=== PATIENT | male | born 1960 | race Caucasian/White ===

== ENCOUNTER 2019-11-14 07:56 | Observation (INO) ==
--- NOTE | 2019-11-08 12:53 | PAT Medication Instructions ---
Medication Instructions Date of Service November 08, 2019 Home Medications buspirone 20 mg PO QAM fluoxetine 20 mg PO QAM fluticasone propionate 1 spray INTRANASAL DAILY PRN montelukast 10 mg PO QAM pantoprazole 40 mg PO QAM simvastatin 40 mg PO QAM Lactobacillus acidophilus [Probiotic Acidophilus] 1,000 mmu cells PO QAM cholecalciferol (vitamin D3) [Vitamin D3] 50 mcg PO QAM ipratropium bromide 2 spray INTRANASAL BID meloxicam 15 mg PO QAM ASK your surgeon for instructions meloxicam 15 mg PO QAM DO NOT take the morning of surgery montelukast 10 mg PO QAM Lactobacillus acidophilus [Probiotic Acidophilus] 1,000 mmu cells PO QAM cholecalciferol (vitamin D3) [Vitamin D3] 50 mcg PO QAM Take morning of surgery With a small sip of water, OTHERWISE NOTHING TO EAT OR DRINK AFTER MIDNIGHT: buspirone 20 mg PO QAM fluoxetine 20 mg PO QAM fluticasone propionate 1 spray INTRANASAL DAILY PRN (if needed) pantoprazole 40 mg PO QAM simvastatin 40 mg PO QAM ipratropium bromide 2 spray INTRANASAL BID Take evening before surgery fluticasone propionate 1 spray INTRANASAL DAILY PRN (if needed) ipratropium bromide 2 spray INTRANASAL BID Other Notes If you have any questions please call us at [phone] or [phone] or [phone] or [phone]
--- NOTE | 2019-11-10 11:33 | Anesthesiology Consultation ---
Date of Service November 10, 2019 Assessment & Plan (1) Encounter for pre-operative examination: Per assessment on 11/09: Travel screen negative. No known COVID-19 positive cont acts or current COVID-19 related symptoms. Surgeon arranging preop COVID testing (was already done 11/09; VIOLA Munroe). Awaiting results. Chart Review Chart Review: Acceptable Risk for Surgery (pending surgeon-ordered PCP clearance) and Patient seen in Pre Admission Testing Teaching & Discussion Pre-Anesthesia Teaching/Discussion Notes: Instructed NPO after midnight before surgery,except medications with 15 cc of water. Medication instructions provided according to the PAT guidelines. History Surgery Operation Date: 11/14/19 11:10 Proposed Procedures p Right Anterior Total Hip Arthroplasty - Haris Carr DO Height/Weight Height: 5 ft 11 in Weight: 112.9 kg Allergies Allergy/AdvReac Type Severity Reaction Status Date / Time fexofenadine Allergy Unknown itchy Verified 11/08/19 11:15 omeprazole AdvReac Unknown SOB Verified 11/08/19 11:15 seasonal Allergy Unknown "allergy Uncoded 11/08/19 11:15 symptoms" Medications Home Medications Medication Instructions Recorded Confirmed Last Taken buspirone 20 mg PO QAM 09/24/19 11/08/19 09/24/19 fluoxetine 20 mg PO QAM 09/24/19 11/08/19 09/24/19 fluticasone propionate 1 spray INTRANASAL DAILY PRN 09/24/19 11/08/19 Unknown montelukast 10 mg PO QAM 09/24/19 11/08/19 09/24/19 pantoprazole 40 mg PO QAM 09/24/19 11/08/19 09/24/19 simvastatin 40 mg PO QAM 09/24/19 11/08/19 09/24/19 Lactobacillus acidophilus 1,000 mmu cells PO QAM 11/08/19 11/08/19 Unknown [Probiotic Acidophilus] cholecalciferol (vitamin D3) 50 mcg PO QAM 11/08/19 11/08/19 Unknown [Vitamin D3] ipratropium bromide 2 spray INTRANASAL BID 11/08/19 11/08/19 Unknown meloxicam 15 mg PO QAM 11/08/19 11/08/19 Unknown Past Medical History Medical History Anxiety Depression GERD (gastroesophageal reflux disease) controlled Hypercholesteremia Obesity Osteoarthritis Exercise / Class Metabolic Activity II 4-5 Yardwork/Stairs/Walk up hill Past Family History Family History Grandmother (Maternal) Family history of diabetes mellitus Past Surgical History Surgical History Fusion of spine CERVICAL C4-C5 History of arthroscopy L KNEE X 4 History of colonoscopy History of repair of rotator cuff R/L History of vasectomy Past Anesthesia History No Hx of Anesthesia Complications and No Family Hx of Anesthesia Complications History of PONV No Hx of PONV and No Hx of Motion Sickness Social History Smoking Status: Never smoker Do You Dip or Chew Tobacco: No Hx Alcohol Use: Yes Alcohol type: hard liquor alcohol intake frequency: a few times a week Hx Substance Use: No Review of Systems Reflux controlled. Patient denies chest pain, shortness of breath, dyspnea on exertion, fever, chills, cough, wheezing, palpitations. Physical Exam Vital Signs VITALS BP 137/88 P 72 TEMP 97.9 SP02 97%RA RESP 16 PHYSICAL Full neck and c-spine range of motion. Full TMJ range of motion. TMD 3 finger breaths Mallampati Score 3 Dentition: intact, + crowns Lungs: clear throughout to auscultation Cardiac: regular rate and rhythm, no murmurs noted Spine: normal Carotid arteries: negative bruit Extremities: no edema Testing Laboratory Results 11/10/19 11:46 11/10/19 11:46 PT 10.4 Seconds (9.0-12.0) 11/10/19 11:46 INR 1.0 (0.9-1.1) 11/10/19 11:46 APTT 26.7 Seconds (21.0-31.0) 11/10/19 11:46 Hemoglobin A1c 6.4 % (4.5-5.6) H 11/10/19 11:46 Urine Color Dark Yellow 11/10/19 Unknown Urine Appearance Clear (Clear) 11/10/19 Unknown Urine pH 5.0 (4.5-7.5) 11/10/19 Unknown Ur Specific [place] 1.029 (1.000-1.030) 11/10/19 Unknown Urine Protein Negative (Negative) 11/10/19 Unknown Urine Glucose (UA) Negative (Negative) 11/10/19 Unknown Urine Ketones Trace (Negative) H 11/10/19 Unknown Urine Nitrite Negative (Negative) 11/10/19 Unknown Ur Leukocyte Esterase Negative (Negative) 11/10/19 Unknown Blood Type O Positive 11/10/19 11:46 Antibody Screen NEGATIVE 11/10/19 11:46 Electrocardiogram Date: 11/10/19 NSR at 79bpm. unconfirmed report. Chest X-Ray Date: 11/10/19 Cardiomediastinal and hilar silhouettes are within normal limits. Unchanged mild pleural thickening at the apices. No pneumothorax, pleural effusion or overt pulmonary edema. Bones of the chest appear grossly intact. Lower cervical spine fusion hardware. IMPRESSION: No acute process.
--- NOTE | 2019-11-10 12:11 | XRay Report ---
XR chest Pre-admission PA/Lat HISTORY: 59 years-old Male pat preoperative exam. COMPARISON: Chest radiograph 08/12/2013 TECHNIQUE: PA and lateral views of the chest FINDINGS: Cardiomediastinal and hilar silhouettes are within normal limits. Unchanged mild pleural thickening a t the apices. No pneumothorax, pleural effusion or overt pulmonary edema. Bones of the chest appear g rossly intact. Lower cervical spine fusion hardware. IMPRESSION: No acute process. ACT 112: Negative or not required by law. The above report was generated using voice recognition software. It may contain grammatical, syntax o r spelling errors. Electronically signed by: Justin Cerna M.D. 11/10/2019 12:09 PM
[2019-11-10 12:32] LABS: Appearance Urine Clear (Clear); Bilirubin Urine Negative (Negative); Blood Urine Negative (Negative); Color Urine Dark Yellow; Glucose Urine UA Negative (Negative); Ketones Urine Trace (Negative); Leukocyte Esterase Urine Negative (Negative); Nitrite Urine Negative (Negative); Protein Urine Negative (Negative); Specific Gravity Urine 1.029 (1.000-1.030); Urobilinogen Urine Negative (Negative)
[2019-11-10 12:34] LABS: Basophils # (auto) 0.04 K/uL (0-0.2); Basophils % (auto) 0.5 %; Eosinophils # (auto) 0.27 K/uL (0-0.5); Eosinophils % (auto) 3.3 %; Hematocrit (blood only) 45.3 % (42-52); Hemoglobin 15.2 g/dL (14.0-18.0); Immature Granulocytes # (auto) 0.18 K/uL (0.00-0.02); Immature Granulocytes % (auto) 2.2 %; Lymphocytes # (auto) 2.06 K/uL (1.2-3.4); Mean Corpuscular Hemoglobin 29.6 pg (25-34); Mean Corpuscular Hgb Conc 33.6 g/dL (32-36); Mean Corpuscular Volume 88.3 fL (80-100); Mean Platelet Volume 9.8 fL (7.4-10.4); Monocytes # (auto) 0.79 K/uL (0.11-0.59); Monocytes % (auto) 9.6 %; Neutrophils # (auto) 4.91 K/uL (1.4-6.5); Neutrophils % (auto) 59.4 %; Platelet Count 202 K/uL (130-400); RDW Coefficient of Variation 12.7 % (11.5-14.5); RDW Standard Deviation 40.9 fL (36.4-46.3); Red Blood Count 5.13 M/uL (4.7-6.1); White Blood Count 8.25 K/uL (4.8-10.8)
[2019-11-10 12:42] LABS: Partial Thromboplastin Time 26.7 Seconds (21.0-31.0); Prothrombin Time 10.4 Seconds (9.0-12.0)
[2019-11-10 12:47] LABS: Albumin Level 3.9 gm/dl (3.4-5.0); BUN Creatinine Ratio 19.7 (10-20); Calcium 9.4 mg/dl (8.5-10.1); Creatinine Clr Calc Pharmacy 90.7 ml/min; Est GFR (African American) 82.9; Est GFR (Non-African American) 71.5
[2019-11-10 12:52] LABS: Estimated Average Glucose 137 mg/dl; Hemoglobin A1C 6.4 % (4.5-5.6)
--- NOTE | 2019-11-10 19:05 | Electrocardiogram Report ---
Test Reason : Blood Pressure : / mmHG Vent. Rate : 079 BPM Atrial Rate : 079 BPM P-R Int : 162 ms QRS Dur : 084 ms QT Int : 374 ms P-R-T Axes : 056 056 055 degrees QTc Int : 428 ms Normal sinus rhythm Normal ECG When compared with ECG of 11-AUG-2013 19:08, No significant change was found Confirmed by Doug Salazar ([id number]) on 11/10/2019 7:04:26 PM Referred By: Haris Carr Confirmed By:Duong Salazar
--- NOTE | 2019-11-12 11:50 | History & Physical Report ---
Date of Service November 14, 2019 Assessment & Plan (1) Degenerative joint disease of right hip: I have indicated the patient for right anterior total hip replacement. The risks, benefits and complications of surgery were explained to the patient which include but not limited to infection, acute blood loss, DVT/PE, injury to nerves, vessels, bone, soft tissue, arthrofibrosis, chronic pain, failure of the prosthesis, hip dislocation, leg length discrepancy, need for additional surgery, cardiac and pulmonary events and . The patient wished to proceed with surgery and informed consent was obtained at this time. We will plan for ASA BID post-operatively for DVT prophylaxis. Upon discharge the patient will be discharged home with home health services. Appropriate clearances by PCP were obtained. History of Present Illness Chief Complaint: Right hip pain/DJD Primary Care Provider: DONALD Cornejo The patient is a 59 year old male who presents with complaints of severe right hip pain and DJD. The patient has failed outpatient conservative treatments to this point which included NSAIDs, home exercise, walking program. Patient declined corticosteroid injection. The patient's pain and limited function have progressed to the point where they severely hinder their activities of daily living and they no longer tolerate exercise programs. They are requesting to proceed with total hip replacement surgery. Allergies Allergy/AdvReac Type Severity Reaction Status Date / Time fexofenadine Allergy Unknown itchy Verified 11/08/19 11:15 omeprazole AdvReac Unknown SOB Verified 11/08/19 11:15 seasonal Allergy Unknown "allergy Uncoded 11/08/19 11:15 symptoms" Home Medications Home Medications Medication Instructions Recorded Confirmed Type buspirone 20 mg PO QAM 09/24/19 11/14/19 History fluoxetine 20 mg PO QAM 09/24/19 11/14/19 History fluticasone propionate 1 spray INTRANASAL DAILY PRN 09/24/19 11/08/19 History montelukast 10 mg PO QAM 09/24/19 11/14/19 History pantoprazole 40 mg PO QAM 09/24/19 11/14/19 History simvastatin 40 mg PO QAM 09/24/19 11/14/19 History Lactobacillus acidophilus 1,000 mmu cells PO QAM 11/08/19 11/14/19 History [Probiotic Acidophilus] cholecalciferol (vitamin D3) 50 mcg PO QAM 11/08/19 11/14/19 History [Vitamin D3] ipratropium bromide 2 spray INTRANASAL BID 11/08/19 11/14/19 History meloxicam 15 mg PO QAM 11/08/19 11/14/19 History acetaminophen [Tylenol Extra 500 mg PO Q6H PRN 11/14/19 11/14/19 History Strength] Past Med/Surg History Medical History Anxiety Depression GERD (gastroesophageal reflux disease) controlled Hypercholesteremia Obesity Osteoarthritis Surgical History Fusion of spine CERVICAL C4-C5 History of arthroscopy L KNEE X 4 History of colonoscopy History of repair of rotator cuff R/L History of vasectomy Family History Grandmother (Maternal) Family history of diabetes mellitus Social History Smoking Status: Never smoker Second Hand Exposure: Yes (FAMILY SMOKED); Do You Dip or Chew Tobacco: No; Hx Alcohol Use: Yes Alcohol type: hard liquor Hx Substance Use: No Preferred Language: Estonian Communication Ability: Effective Chemical Production Technician Required: No Beliefs That Will Affect Care: None Current Living Situation: Spouse Other Information That Helps Us Care for You: No Feels Safe at Home: Yes Safety Concerns: Feels Safe At This Time Review of Systems Review of Systems: All systems reviewed & are unremarkable except as noted in HPI & below Constitutional: as per Subjective / HPI Physical Exam Physical Exam: RLE NVSI +EHL/FHL/TA/GS SILT grossly, +2 DP pulse, compartments soft NT, limited painful ROM of the hip, antalgic gait. Constitutional: WD/WN, vitals as above Eyes: PERRL, conjunctivae normal, anicteric sclerae ENMT: external ear and nose normal, oropharynx normal Neck: trachea midline, no thyromegaly Respiratory: normal respiratory effort, lungs clear to auscultation Cardiovascular: RRR, no murmur, no edema Gastrointestinal (Abdomen): normal bowel sounds, soft, nontender, no hepatosplenomegaly Musculoskeletal: no cyanosis or clubbing, extremities motor strength 5/5 Skin: no rashes, warm and dry Neurologic: patellar DTR's 2+ bilat, sensation intact Psychiatric: A+Ox3, euthymic affect Lymphatic: no cervical or axillary lymphadenopathy Results & Data Results & Data ([facility]) Diagnostic Findings Multiple views of the hip demonstrates severe DJD with complete loss of the joint space. +osteophytes, +sclerosis, +subchondral cysts. Pre Admission Testing Addendum Laboratory Results 11/10/19 11:46 11/10/19 11:46 PT 10.4 Seconds (9.0-12.0) 11/10/19 11:46 INR 1.0 (0.9-1.1) 11/10/19 11:46 APTT 26.7 Seconds (21.0-31.0) 11/10/19 11:46 Hemoglobin A1c 6.4 % (4.5-5.6) H 11/10/19 11:46 Urine Color Dark Yellow 11/10/19 Unknown Urine Appearance Clear (Clear) 11/10/19 Unknown Urine pH 5.0 (4.5-7.5) 11/10/19 Unknown Ur Specific [place] 1.029 (1.000-1.030) 11/10/19 Unknown Urine Protein Negative (Negative) 11/10/19 Unknown Urine Glucose (UA) Negative (Negative) 11/10/19 Unknown Urine Ketones Trace (Negative) H 11/10/19 Unknown Urine Nitrite Negative (Negative) 11/10/19 Unknown Ur Leukocyte Esterase Negative (Negative) 11/10/19 Unknown Blood Type O Positive 11/10/19 11:46 Antibody Screen NEGATIVE 11/10/19 11:46
[~2019-11-14 07:56] MED LIST: ACETAMINOPHEN 500 MG TAB PO SCH; BUPIVACAINE 0.5 % 5 MG/1 ML PF 10ML VIAL ONE; CeleBREX 200 MG CAP PO SCH; FAMOTIDINE 20 MG TAB PO SCH; GABAPENTIN 600 MG DOSE PO SCH; LR 500ML BOLUS, THEN 15ML/HR IV SCH; METOCLOPRAMIDE HCL 10 MG TABLET PO SCH; MIDAZOLAM HCL 1 MG/ML 2ML VIAL ONE; ROPIVACAINE 0.5% HCL/PF 150 MG, BUPIVACAINE 0.5% MPF 30 ML, EPINEPHrine 30MG/30ML (OR U... INSTIL SCH; TRANEXAMIC ACID 1,000 MG **IV Intra-op IV SCH; TRANEXAMIC ACID 1,000 MG **IV Pre-op IV SCH; ceFAZolin 2000MG 2,000 MG/15 ML SYR IV SCH; dexAMETHasone 4 MG TAB PO SCH; fentaNYL citrate 100 MCG/2 ML VIAL ONE
[2019-11-14] MEDS ORDERED: ONDANSETRON INJ 2 MG/ML 2 ML VIAL IV PRN ×2 (11:30→15:31)
[2019-11-14] MEDS ORDERED: fentaNYL citrate 100 MCG/2 ML VIAL IV PRN (11:30)
[2019-11-14] MEDS ORDERED: ePHEDrine sulfate 50 MG/ML AMP IV PRN (11:30)
[2019-11-14] MEDS ORDERED: ATROPINE SULFATE 0.1 MG/ML 10ML SYR IV PRN (11:30)
--- NOTE | 2019-11-14 11:33 | History & Physical Bridge Note ---
Date of Service November 14, 2019 History & Physical Bridge Note I have examined the patient, reviewed the History & Physical and in the interval since the performance of the History & Physical I have noted the following changes of clinical significance: no changes noted
[2019-11-14] MEDS ORDERED: BACITRACIN INJ 50,000 UNIT VIAL ONE (11:37)
[2019-11-14] MEDS ORDERED: ORTHO JOINT ANESTHETIC ONE (11:37)
[2019-11-14] MEDS ORDERED: PROPOFOL IV EMULSION 10 MG/ML 20 ML VIAL IV ONE ×4 (12:15→12:50)
[2019-11-14] MEDS ORDERED: ePHEDrine sulfate 50 MG/ML SYR ONE (12:28)
[2019-11-14] MEDS ORDERED: PHENYLEPHRINE HCL 10 MG/ML VIAL ONE (12:59)
--- NOTE | 2019-11-14 13:59 | Post Operative Brief Note ---
Immediate Post Op Note v1 Date of Surgery November 14, 2019 Pre & Post Diagnosis Operation Date: 11/14/19 11:10 Pre-Op Diagnosis: Right Hip Osteoarthritis Post-Op Diagnosis: Right Hip Osteoarthritis I identified the patient and participated in the time-out.: Yes Procedure Operation Date: 11/14/19 11:10 Actual Procedures p Right Anterior Total Hip Arthroplasty(Right) - Haris Carr DO Surgeon Haris Carr DO Finishing Manager Jacinto Stewart Estimated Blood Loss 155 Findings Consistent with Post-Op Diagnosis Fluids 1500 cc LR Specimens Femoral head Anesthesia Type Spinal MAC Complications none Disposition Disposition: Recovery Room Overlapping Procedure I was present for: the critical portions of procedure. I was immediately available: during the entire case. Back up surgeon: was not required during procedure.
--- NOTE | 2019-11-14 14:00 | Fluoroscopy Report ---
FL hip RT 1V HISTORY: 59 years-old Male RT ANTERIOR TOTAL HIP right hip total joint arthroplasty COMPARISON: Pelvis and right hip radiographs 09/24/2019 TECHNIQUE: 2 spot fluoroscopic images of the right hip were obtained utilizing 37.6 seconds fluorosco py time FINDINGS: Right hip total joint arthroplasty demonstrates satisfactory alignment. No acute fracture or unexpect ed retained foreign body. Expected postsurgical soft tissue swelling and deep tissue air. IMPRESSION: Fluoroscopic assistance as above. Please see operative report for further details. ACT 112: Negative or not required by law. The above report was generated using voice recognition software. It may contain grammatical, syntax o r spelling errors. Electronically signed by: Justin Cerna M.D. 11/14/2019 1:59 PM
--- NOTE | 2019-11-14 14:01 | Operative Report ---
Post Operative Report Pre & Post Diagnosis Operation Date: 11/14/19 11:10 Pre-Op Diagnosis: Right Hip Osteoarthritis Post-Op Diagnosis: Right Hip Osteoarthritis I identified the patient and participated in the time-out.: Yes Procedure Operation Date: 11/14/19 11:10 Actual Procedures p Right Anterior Total Hip Arthroplasty(Right) - Haris Carr DO Surgeon Haris Carr DO Hall Tender Jacinto Stewart Estimated Blood Loss 155 Findings Consistent with Post-Op Diagnosis Fluids 1500 cc LR Specimens Femoral head Anesthesia Type Spinal MAC Complications none Disposition Disposition: Recovery Room Indications The patient is a 59-year-old male who presents with severe progressive right hip DJD who has failed outpatient conservative treatments. I indicated the patient for a total hip replacement and the risks and benefits were explained in detail which included but not limited to infection, bleeding, blood clot, damage to surrounding bone, nerves, vessels, soft tissue, hip dislocation, failure of the prosthesis, leg length discrepancy, need for additional surgery and . The patient agreed to proceed with replacement of the hip and informed consent was obtained. Appropriate clearances were obtained. Description of Procedure COMPONENTS USED: [employer] hip system: Acetabulum size 54, femur size 9 high offset, femoral head 36+4, liner 5436, acetabular screw 25 mm x 1. DESCRIPTION OF PROCEDURE: Following satisfactory spinal anesthesia, the patient was placed supine on the OR table. The left leg was placed in the well leg aguilera and the right leg in the traction device. The right leg was prepared with ChloraPrep and draped sterilely. A surgical timeout was performed, patient identified and site perlita verified. Appropriate antibiotics were given. A standard anterior approach in the interval between the sartorius and tensor muscles was performed. Dissection was carried down through subcutaneous tissues. Electrocautery was utilized for hemostasis. Circumflex femoral vessels were identified, tied and ligated. The anterior capsular fat pad was removed and the capsulotomy was performed revealing the arthritic femoral neck and head. A femoral neck cut was made with reciprocating saw and the bone fragments removed. The acetabular self-retraining retractor was placed. Acetabular reaming was completed under fluoroscopic guidance, a 54 shell was impacted into an anatomic position and secured with a dome screw. Local anesthetic was placed and following irrigation, the polyethylene liner was placed. The femur was placed into position of external rotation, extension and adduction. Femoral canal was prepared up to the size 9 high offset. Trial reduction with a 36+4 neck length head showed good soft tissue tension, leg lengths restored, and good fit and fill of the proximal canal using fluoroscopic landmarks. The hip was dislocated. The trial component was removed. The final implant was placed. The hip was irrigated with sterile saline solution and reduced. A Betadine soak was performed. After 3 minutes, the hip was once more irrigated with copious sterile saline solution with bacitracin. Chloe-incisional soft tissue was injected utilizing [place] [employer]omix which includes a combination of Ropivicaine 0.5% 150mg, Bupivicaine 0.5%/Epinephrine 1:200,000 30ml, Toradol 30mg, Dexamethasone 4mg, Ketamine 10mg, Clonidine 100mcg and NSS 30ml solution. The capsule was then closed with 1-0 Vicryl interrupted figure of eight sutures. The fascia was closed with a running suture of #1 Vicryl, the subcutaneous tissues with 2-0 Vicryl and the skin was closed with rylee. A sterile dry dressing was applied which included Venita incisional VAC. The patient tolerated the procedure well and was transported to PACU in stable condition. Due to the complex nature of the procedure, the entire surgery was performed with the operational assistance of Jacinto Stewart PA-C. The dietitian assistant, under direct supervision, was involved in the actual performance of all aspects of the surgical procedure including patient positioning, hemostasis, tissue re traction, instrument management and wound closure. I attest to the content of the Intraoperative Record and any orders documented therein. Any exceptions are noted below.
--- NOTE | 2019-11-14 14:37 | XRay Report ---
AP PELVIS, CROSSTABLE LATERAL RIGHT HIP History: Right total hip arthroplasty. Degenerative arthritis. Postop. FINDINGS: The patient is status post a right total hip arthroplasty. The hardware is intact. No fract ure or dislocation. Skin rylee are in place. IMPRESSION: Right total hip arthroplasty. No evidence for hardware complication ACT 112: Negative or not required by law. Electronically signed by: Regan Urrutia M.D. 11/14/2019 2:36 PM
--- NOTE | 2019-11-14 14:44 | Anesthesiology Progress Note ---
Date of Service November 14, 2019 Anesthesia Post Procedure Vital Signs Vital Signs: Temp Pulse Pulse Resp BP BP Pulse Ox 11/14/19 14:30 83 13 110/60 96 11/14/19 14:20 81 11 L 92/57 L 100 11/14/19 14:13 97.7 F 89 15 96/63 L 97 11/14/19 09:47 69 20 148/78 H 96 11/14/19 09:30 97.9 F 78 18 148/94 H 97 Pain Intensity Right Hip: Pain Intensity: 0 Transfer of Care Handoff Completed per policy Notes Mental Status: alert / awake / arousable and participated in evaluation Patient Amnestic to Procedure: Yes Nausea / Vomiting: adequately controlled Pain: adequately controlled Airway Patency, RR, SpO2: stable & adequate BP & HR: stable & adequate Hydration State: stable & adequate Neuraxial Anesthesia: was administered and sensory block is resolving Anesthetic Complications: no major complications apparent and Pt Satisfied with anesthetic care
[2019-11-14] MEDS ORDERED: diphenhydrAMINE Capsule 25 MG CAP PO PRN (15:31)
[2019-11-14] MEDS ORDERED: MAGNESIUM HYDROXIDE SUSP 30 ML UDC PO PRN (15:31)
[2019-11-14] MEDS ORDERED: METOCLOPRAMIDE HCL INJ 5 MG/ML 2 ML VIAL IV PRN (15:31)
[2019-11-14] MEDS ORDERED: HYDROmorphone INJ 0.5 MG/0.5 ML SYR IV PRN (15:31)
[2019-11-14] MEDS ORDERED: NALOXONE HCL 0.4 MG/1 ML VIAL/CARP IV PRN (15:31)
[2019-11-14] MEDS ORDERED: bisacodyL 10 MG SUPP PR PRN (15:31)
[2019-11-14] MEDS: SODIUM CHLORIDE 0.9% 1000ML 1,000 ML IV SCH (15:57)
--- NOTE | 2019-11-14 15:58 | Orthopedic Progress Note ---
Date of Service November 14, 2019 Assessment & Plan (1) Degenerative joint disease of right hip: s/p R anterior ATIF -ancef x 24 -DVT ppx: SCDs, TEDs, ASA BID -WBAT RLE -PT/OT -PO XR demonstrates a well aligned well fixed prosthesis without fracture/dislocation -am labs -DC planning Admission and Anticipated Discharge Date Admission Date: November 14, 2019 Subjective Post Operative Progress Note Patient seen in PACU, comfortable, denies complaints, pain well controlled, no acute issues. Spinal anesthesia starting to wear off. Review of Systems Review of Systems: All systems reviewed & are unremarkable except as noted in HPI & below Constitutional: as per Subjective / HPI Physical Exam Physical Exam: RLE PE limited secondary to spinal anesthesia, +2 DP pulse, compartment soft NT, dressing CDI. Constitutional: WD/WN, vitals as above Results & Data ([facility]) Vital Signs (Past 12 Hours) Vital Signs Temp Pulse Pulse Resp BP BP Pulse Ox 11/14/19 15:35 36.5 C 88 16 113/71 95 11/14/19 15:25 80 13 113/62 97 11/14/19 15:15 84 15 94/69 L 92 11/14/19 15:00 85 12 116/66 94 11/14/19 14:45 36.3 C L 87 15 103/64 97 11/14/19 14:40 86 14 105/61 94 11/14/19 14:30 36.3 C L 83 13 110/60 96 11/14/19 14:20 81 11 L 92/57 L 100 11/14/19 14:13 36.5 C 89 15 96/63 L 97 11/14/19 09:47 69 20 148/78 H 96 11/14/19 09:30 36.6 C 78 18 148/94 H 97
[2019-11-14] MEDS: KETOROLAC TROMETHAMINE 15 MG/ML VIAL IV SCH ×2 (16:40→21:00)
[2019-11-14] MEDS: ceFAZolin 3,000 MG in DEXTROSE 5% 50 ML IV SCH (20:58)
[2019-11-14] MEDS: DOCUSATE SODIUM 100 MG CAP PO SCH (20:59)
[2019-11-14] MEDS ORDERED: SENNA 8.6 MG TAB PO SCH (21:00)
[2019-11-14] MEDS: ACETAMINOPHEN 500 MG TAB PO SCH (21:00)
[2019-11-14] MEDS: oxyCODONE HCL IR 5 MG TAB (IMMEDIATE RELEASE) PO PRN (21:11)
[2019-11-15] MEDS: oxyCODONE HCL IR 5 MG TAB (IMMEDIATE RELEASE) PO PRN ×2 (02:35→07:39)
[2019-11-15] MEDS: SODIUM CHLORIDE 0.9% 1000ML 1,000 ML IV SCH (02:39)
[2019-11-15] MEDS: ceFAZolin 3,000 MG in DEXTROSE 5% 50 ML IV SCH (05:07)
[2019-11-15] MEDS: KETOROLAC TROMETHAMINE 15 MG/ML VIAL IV SCH ×2 (05:08→10:22)
[2019-11-15] MEDS: ACETAMINOPHEN 500 MG TAB PO SCH ×2 (05:08→13:03)
[2019-11-15 06:15] LABS: Basophils # (auto) 0.01 K/uL (0-0.2); Basophils % (auto) 0.1 %; Hematocrit (blood only) 38.7 % (42-52); Hemoglobin 12.8 g/dL (14.0-18.0); Immature Granulocytes % (auto) 0.6 %; Lymphocytes # (auto) 1.27 K/uL (1.2-3.4); Lymphocytes % (auto) 7.9 %; Mean Corpuscular Hgb Conc 33.1 g/dL (32-36); Mean Corpuscular Volume 87.8 fL (80-100); Mean Platelet Volume 9.6 fL (7.4-10.4); Monocytes # (auto) 1.12 K/uL (0.11-0.59); Neutrophils # (auto) 13.61 K/uL (1.4-6.5); Neutrophils % (auto) 84.4 %; Platelet Count 222 K/uL (130-400); RDW Coefficient of Variation 12.6 % (11.5-14.5); RDW Standard Deviation 40.8 fL (36.4-46.3); Red Blood Count 4.41 M/uL (4.7-6.1); White Blood Count 16.11 K/uL (4.8-10.8)
[2019-11-15 06:51] LABS: Calcium 8.4 mg/dl (8.5-10.1); Creatinine Clr Calc Pharmacy 102.3 ml/min; Est GFR (African American) 96.2; Potassium 3.9 mmol/L (3.5-5.1)
[2019-11-15] MEDS: DOCUSATE SODIUM 100 MG CAP PO SCH (07:37)
[2019-11-15] MEDS ORDERED: MONTELUKAST SODIUM 10 MG TABLET PO SCH (09:00)
[2019-11-15] MEDS ORDERED: PANTOprazole 40 MG TAB PO SCH (09:00)
[2019-11-15] MEDS ORDERED: busPIRone 5 MG TAB PO SCH (09:00)
[2019-11-15] MEDS ORDERED: ASPIRIN 325 MG ECTAB PO SCH (09:00)
[2019-11-15] MEDS ORDERED: MULTIVITAMIN TAB PO SCH (09:00)
[2019-11-15] MEDS ORDERED: SIMVASTATIN 40 MG TAB PO SCH (09:00)
[2019-11-15] MEDS ORDERED: FLUoxetine HCL 20 MG CAP PO SCH (09:00)
--- NOTE | 2019-11-15 11:15 | Orthopedic Progress Note ---
Date of Service November 15, 2019 Assessment & Plan (1) Degenerative joint disease of right hip: s/p R anterior ATIF POD#1 -ancef x 24 -DVT ppx: SCDs, TEDs, ASA BID -WBAT RLE -PT/OT -PO XR demonstrates a well aligned well fixed prosthesis without fracture/dislocation -am labs - as above, hgb 12.8 -DC planning - home with Admission and Anticipated Discharge Date Admission Date: November 14, 2019 Subjective Post Operative Progress Note Patient seen sitting up in bed, comfortable, denies complaints, pain well controlled, no acute issues. Denies F/C/N/V/SOB/CP. Review of Systems Review of Systems: All systems reviewed & are unremarkable except as noted in HPI & below Constitutional: as per Subjective / HPI Physical Exam Physical Exam: RLE NVSI +EHL/FHL/TA/GS SILT grossly, +2 DP pulse, compartments soft NT, dressing cdi. Constitutional: WD/WN, vitals as above Results & Data ([facility]) Vital Signs (Past 12 Hours) Vital Signs Temp Pulse Resp BP Pulse Ox 11/15/19 07:17 36.3 C L 83 16 137/76 94 11/15/19 02:37 36.3 C L 90 16 153/86 H 95 11/14/19 23:40 36.5 C 92 H 16 166/92 H 94 Laboratory Results 11/15/19 11/15/19 Range/Units 05:20 05:20 WBC 16.11 H (4.8-10.8) K/uL RBC 4.41 L (4.7-6.1) M/uL Hgb 12.8 L (14.0-18.0) g/dL Hct 38.7 L (42-52) % MCV 87.8 (80-100) fL MCH 29.0 (25-34) pg MCHC 33.1 (32-36) g/dL RDW Std Deviation 40.8 (36.4-46.3) fL RDW Coeff of Aly 12.6 (11.5-14.5) % Plt Count 222 (130-400) K/uL MPV 9.6 (7.4-10.4) fL Immature Gran % (Auto) 0.6 % Neut % (Auto) 84.4 % Lymph % (Auto) 7.9 % [place] % (Auto) 7.0 % Eos % (Auto) 0.0 % Baso % (Auto) 0.1 % Neut # (Auto) 13.61 H (1.4-6.5) K/uL Lymph # (Auto) 1.27 (1.2-3.4) K/uL [place] # (Auto) 1.12 H (0.11-0.59) K/uL Eos # (Auto) 0.00 (0-0.5) K/uL Baso # (Auto) 0.01 (0-0.2) K/uL Immature Gran # (Auto) 0.10 H (0.00-0.02) K/uL Sodium 139 (136-145) mmol/L Potassium 3.9 (3.5-5.1) mmol/L Chloride 107 (98-107) mmol/L Carbon Dioxide 24 (21-32) mmol/L Anion Gap 8.0 (3-11) BUN 18 (7-18) mg/dl Creatinine 0.99 (0.6-1.4) mg/dl Est Cr Clr Drug Dosing 102.3 ml/min Est GFR ( Amer) 96.2 Est GFR (Non-Af Amer) 83.0 BUN/Creatinine Ratio 18.0 (10-20) Glucose 142 H (70-99) mg/dl Calcium 8.4 L (8.5-10.1) mg/dl
[2019-11-15] MEDS ORDERED: CeleBREX 200 MG CAP PO SCH (21:00)
--- NOTE | 2019-11-16 09:30 | Discharge Summary ---
Date of Service November 15, 2019 Admission HPI Per Admitting Provider The patient is a 59 year old male who presents with complaints of severe right hip pain and DJD. The patient has failed outpatient conservative treatments to this point which included NSAIDs, home exercise, walking program. Patient declined corticosteroid injection. The patient's pain and limited function have progressed to the point where they severely hinder their activities of daily living and they no longer tolerate exercise programs. They are requesting to proceed with total hip replacement surgery. Principal Diagnosis Right anterior total hip replacement -Right hip DJD Discharge Exam RLE NVSI +EHL/FHL/TA/GS SILT grossly, +2 DP pulse, compartments soft NT, dressing cdi. Constitutional WD/WN, vitals as above Discharge Data Allergies Allergy/AdvReac Type Severity Reaction Status Date / Time fexofenadine Allergy Unknown itchy Verified 11/08/19 11:15 omeprazole AdvReac Unknown SOB Verified 11/08/19 11:15 seasonal Allergy Unknown "allergy Uncoded 11/08/19 11:15 symptoms" Consultations 11/15/19 08:00 Consult Case Management - Discharge Planning Routine Procedures Performed Operation Date: 11/14/19 11:10 Actual Procedures p Right Anterior Total Hip Arthroplasty(Right) - Haris Carr DO Ordered Studies 11/14/19 11:10 FL fluoroscopy <1hr Routine FL hip RT 1V Routine Hospital Course (1) Degenerative joint disease of right hip: The patient is a 59 -year-old male who presents with long standing history of severe right hip DJD and failed outpatient conservative treatments. The patient's symptoms have progressed to the point where it has been difficult to perform even normal activities of daily living. I indicated the patient for a right anterior total hip arthroplasty, the risks, benefits and complications of the procedure include but not limited to infection, bleeding, damage to bone, nerves, vessels, surrounding soft tissue, may develop blood clots, loss of function, leg length discrepancy, dislocation, failure of the components, loosening of the components, the need for additional surgery and . The patient wished to proceed with surgery at this time and informed consent was obtained. Hospital Course: On 11/14/19 the patient was taken to the operating room, adequate anesthesia administered and underwent a right anterior total hip arthroplasty. The patient tolerated the procedure well and was taken to the PACU in stable condition. Post-operatively the patient was started on a DVT ppx medication and given appropriate IV antibiotics. Consults were placed to physical therapy, occupational therapy and case management. On POD#1, the patient did well overnight and their pain was well controlled. Labs were drawn and the Hgb was 12.8. The patient progressed well with PT. Dressings were changed at this time and the incision was clean, dry and intact. The patients hospital stay was relatively uneventful and they were deemed stable by the orthopedic team and consultants to be discharged home with HH on 11/15/19. Discharge Instructions: Upon discharge the patient may weight bear as tolerates through their operative extremity. They were instructed to keep the incision clean and dry at all times. The patient may shower but should not submerge the incision, avoid bathing, pools and hot tubes. The patient was given a script for pain medication and should take as instructed. The patient was given a script for DVT ppx 325mg ASA BID and should take as directed. The patient was instructed to not drive or travel for long distances until cleared to do so. If the patient develops any symptoms of fevers, chills, nausea, vomiting, increased redness, swelling, pain or drainage from the surgical site, they should notify the office and/or proceed to the nearest emergency room. The patient should follow up in 10-14 days after surgery for their routine post-operative follow-up appointment and should call the office to confirm the date and time. s/p R anterior ATIF POD#1 -ancef x 24 -DVT ppx: SCDs, TEDs, ASA BID -WBAT RLE -PT/OT -PO XR demonstrates a well aligned well fixed prosthesis without fracture/dislo cation -am labs - as above, hgb 12.8 -DC planning - home with Total Time Total Time Spent Total Time Spent (In Minutes): 30 Discharge Plan Discharge Items Patient Disposition: Home - Home Health Services Reason For Visit: Right Hip Osteoarthritis Discharge Diagnosis: Right anterior total hip replacement -right hip djd Condition on Discharge: Good Activity: Per Instructions section Lifting: Wait until after follow-up appointment Bathing: Keep incision dry Bathing Comment: No bathing, pools or hot tubs. Sexual Activity: Wait until after follow-up appointment Exercise/Sports: Wait until after follow-up appointment Driving/Machine Use: No driving Weightbearing: Full weightbearing Non-emergency contact: Primary Care Provider and Surgeon Call non-emergency contact if: you have any medication questions, your symptoms worsen, your pain is not controlled, your pain is worsening, your pain is unusual for you, your pain is concerning for you, you have a fever, your temperature is above 101, your wound has increased redness, your wound has increased drainage and your wound pain has increased Follow-up/Referrals: Pamela Santana CRNP [Primary Care Provider] - Diet: Regular Addtl Attending Provider Instructions: ACTIVITY RECOMMENDATIONS: SELF CARE INSTRUCTIONS AFTER TOTAL HIP REPLACEMENT : Direct Anterior Approach Until the incision and soft tissues around your hip have healed, there is a possibility that the hip prosthesis could dislocate. A. Hip flexion ( Up & Down out of chair or steps ) may be difficult. This is normal. B. Numbness in front of the thigh is also normal for a few weeks. C. Use hand rails when walking on stairs. D. Wear low heeled shoes with non-slip soles. E. Be sure that your floors are free of things that could trip you - throw rugs, electrical cords, small objects. Avoid wet and waxed floors, especially with crutches and canes. F. Try to walk several times a day with rest periods between. G. Continue with all the exercises taught to you in the hospital. Again, make walking a part of your daily routine. SPECIAL CARE INSTRUCTIONS: VERY IMPORTANT TO READ AND REVIEW A. You may still be at risk for phlebitis and blood clots. 1. Wear surgical stockings (PIERCE hose) for 2 weeks after surgery to improve circulation and reduce swelling. 2. Take Aspirin 325mg twice daily for 4 weeks or as directed by your doctor. This is your blood thinner. 3. High risk patients may be prescribed a stronger blood thinner if necessary. 4. If you are on Coumadin normally, your family doctor/procedures nurse should monitor your blood work. Expect a phone call the day of or the day after bloodwork is drawn to adjust your dosage. B. You must take antibiotics before having dental work, bladder, bowel and other surgery. Your doctor will provide you with a permanent card to carry describing precautions. C. Call [facility] if you have a fever, redness or swelling around the incision, cloudy drainage from incision, or sudden increase in pain in your hip, not relieved by your regular pain medication. D. Please call the office at if you have any concerns or questions about your operation or recovery. * YOU MAY SHOWER, NO TUB BATHS UNTIL CLEARED BY YOUR DOCTOR. - Keep an extra close eye on the top portion of your incision. Be sure to keep clean & dry. * WEAR PIERCE HOSE 20 HOURS PER DAY FOR 2 WEEKS. * YOU MAY PROGRESS FROM A WALKER, TO A CANE, TO INDEPENDENT AT YOUR OWN PACE. * MOST PATIENTS WILL HAVE HOME NURSING FOR THERAPY. IF YOU DECIDE TO DO OUTPATIENT PHYSICAL THERAPY, PLEASE SCHEDULE THIS 3 TIMES PER WEEK. *PREVENA incisional vac is a special dressing covering your incision. This dressing provides a sterile dry environment while you are healing. The dressing is to be left in place for 7 days post-operatively. Your home nurse or surgeon will remove. If you develop any redness or blisters or have any questions notify your surgeon immediately. FOLLOW UP VISIT: If appointment is not already scheduled: Please call [facility] to make a follow-up appointment for 2 weeks after your surgery at . Pending Studies at Discharge: No Stand-Alone Forms: [facility], [place] [facility], Opioid Pain Management, Smoking Cessation Medications and DC Order Prescriptions: New celecoxib [Celebrex] 200 mg Capsule 200 mg PO BID PRN (Reason: pain/inflammation) Qty: 28 RF: 0 acetaminophen 500 mg Tablet 1,000 mg PO Q8 PRN (Reason: pain/fevers) Qty: 90 RF: 0 aspirin [Ecotrin] 325 mg Tablet,Delayed Release (Dr/Ec) 325 mg PO BID Qty: 56 RF: 0 oxycodone 5 mg Tablet 5 mg PO Q6H MDD 4 PRN (Reason: pain) Qty: 30 RF: 0 sennosides [Senokot] 8.6 mg Tablet 17.2 mg PO HS PRN (Reason: constipation) Qty: 28 RF: 0 Continued pantoprazole 40 mg tablet,delayed release (DR/EC) 40 mg PO QAM RF: 0 buspirone 10 mg tablet 20 mg PO QAM RF: 0 fluoxetine 10 mg capsule 20 mg PO QAM RF: 0 montelukast 10 mg tablet 10 mg PO QAM RF: 0 fluticasone propionate 50 mcg/actuation spray,suspension 1 spray INTRANASAL DAILY PRN (Reason: seasonal alleries) RF: 0 simvastatin 80 mg tablet 40 mg PO QAM RF: 0 ipratropium bromide 0.03 % [place],Non-Aerosol 2 spray INTRANASAL BID RF: 0 cholecalciferol (vitamin D3) [Vitamin D3] 50 mcg (2,000 unit) Tablet 50 mcg PO QAM RF: 0 Probiotic Acidophilus 1.5 mg (250 million cell) Capsule 1,000 mmu cells PO QAM RF: 0 Discontinued meloxicam 15 mg tablet 15 mg PO QAM RF: 0 acetaminophen [Tylenol Extra Strength] 500 mg Capsule 500 mg PO Q6H PRN (Reason: Pain) RF: 0 Discharge Orders: Discharge Order (Routine); Ordered 11/15/19 Ordered By: Haris Bernabe/Other Patient Handouts: DVT Post Op Prevention, Prediabetes, Diabetes: Meal Planning, A1C Admission Data Admit Date/Time: 11/14/19 14:18 Attending Provider: Haris Carr Admit Provider: Haris Carr Primary Care Provider: Pamela Santana Other Providers: [facility] Other Interventions: Discharge Summary Assessment (RN) Last Done: 11/15/19 13:41
== END 2019-11-15 15:43 | disposition home health service (06) ==
LOC: ASU 07:56 → 3E 07:56